=== PATIENT | male | born 1990 | race Two or more races ===

== ENCOUNTER 2017-12-08 12:30 | Emergency (ER) | payer OTHER ==
--- NOTE | 2017-12-08 13:17 | EDM.PDOC ---
ED HPI GENERAL MEDICAL PROBLEM - General Chief Complaint: Upper Extremity Injury/Pain Stated Complaint: LEFT HAND INJURY Time Seen by Provider: 12/08/17 13:07 Source of Information: Reports: Patient History Limitations: Reports: No Limitations - History of Present Illness INITIAL COMMENTS - FREE TEXT/NARRATIVE: Patient was cleaning fish with a sharp knife accidentally cutting himself to the left palm. Bleeding controlled with direct pressure. Tetanus status up-to- date. Minimal pain present. No sensory motor deficits distally. Left Hand Pain Score (Numeric/FACES): 2 - Related Data Allergies Allergy/AdvReac Type Severity Reaction Status Date / Time lactose Allergy Nausea and Verified 12/08/17 12:58 Vomiting Home Meds: Home Meds . [No Known Home Meds] 12/08/17 [History] Past Medical History Respiratory History: Reports: Pneumonia, Recurrent, Other (See Below) Other Respiratory History: double chest tubes at age 3 Social & Family History - Tobacco Use Smoking Status *Q: Never Smoker - Caffeine Use Caffeine Use: Reports: Energy Drinks, Soda, Tea - Recreational Drug Use Recreational Drug Type: Reports: Marijuana/Hashish Review of Systems - Review of Systems Review Of Systems: ROS reveals no pertinent complaints other than HPI. ED EXAM, GENERAL - Physical Exam Exam: See Below Exam Limited By: No Limitations General Appearance: Alert, WD/WN, No Apparent Distress Ears: Hearing Grossly Normal Nose: Normal Inspection Throat/Mouth: Normal Voice, No Airway Compromise Neck: Normal Inspection, Supple Respiratory/Chest: No Respiratory Distress, No Accessory Muscle Use Cardiovascular: Normal Peripheral Pulses, Regular Rate, Rhythm Peripheral Pulses: 4+: Radial (L) Extremities: Other (Small 0.75 cm laceration to the left palm. Subcutaneous tissue present. This will require one suture.) Neurological: Alert, Oriented, Normal Cognition, No Motor/Sensory Deficits Psychiatric: Normal Affect, Normal Mood Skin Exam: Warm, Dry, Normal Color ED TRAUMA EXTREMITY PROCEDURES - Laceration/Wound Repair Left Ventral Hand Lac/Wound Length In cm: 0.7 Appearance: Subcutaneous, Clean Distal NVT: Neuro & Vascular Intact, No Tendon Injury Anesthetic Type: Local Local Anesthesia - Lidocaine (Xylocaine): 1% Plain Local Anesthetic Volume: 2cc Skin Prep: Chlorhexidine (Hibiciens), Saline, Sterile Drape Exploration/Debridement/Repair: Wound Explored, In a Bloodless Field, Explored to Base, No Foreign Material Found Closed With: Sutures Suture Size: 4-0 # of Sutures: 1 Suture Type: Prolene, Interrupted, Simple Drain Placement: No Sterile Dressing Applied: Nurse Tetanus Status Addressed: Yes Complications: No Course - Vital Signs Last Recorded V/S: Last Vital Signs Temp 98.7 F 12/08/17 13:01 Pulse 67 12/08/17 13:01 Resp 20 12/08/17 13:01 BP 124/77 12/08/17 13:01 Pulse Ox 98 12/08/17 13:01 - Orders/Labs/Meds Meds: Medications Discontinued Medications Generic Name Dose Route Start Last Admin Trade Name Cricket PRN Reason Stop Dose Admin Lidocaine HCl 10 ml 12/08/17 13:12 12/08/17 13:33 Xylocaine 1% INJECT 12/08/17 13:13 10 ml ONETIME ONE Administration - Re-Assessments/Exams Free Text/Narrative Re-Assessment/Exam: Small 0.75 cm to the left palm requiring one simple interrupted suture. 1% lidocaine order. Laceration closed with no obligations. Discharge instructions as documented. Departure - Departure Time of Disposition: 14:03 Disposition: Home, Self-Care 01 Condition: Good Clinical Impression: Laceration Laceration of hand Qualifiers: Encounter type: initial encounter Foreign body presence: without foreign body Laterality: left Qualified Code(s): S61.412A - Laceration without foreign body of left hand, initial encounter - Discharge Information Instructions: Laceration Care, Adult Referrals: PCP,None [Primary Care Provider] - Forms: ED Department Discharge, ED Return to Work/School Form Additional Instructions: Cleanse site twice daily with soap and water, pat dry, reapply Triple Antibiotic ointment, and dressing. Do not soak wound. Keep area clean and dry. Follow-up with a provider at [facility] in [place] for suture removal in 10 days. Utilize Tylenol and ibuprofen in alternating fashion for pain. Wear a glove while working with food. Return to the ED if you develop any new or worsening symptoms.
[2017-12-08] MEDS: Lidocaine 1% 10 ML MDV INJECT ONE (13:33)
== END 2017-12-08 14:03 | disposition home or self-care (01) ==
LOC: JD.ED 12:30
DX: S61.412A Laceration without foreign body of left hand, initial encounter (principal); W26.0XXA Contact with knife, initial encounter; Y93.89 Activity, other specified; Y99.0 Civilian activity done for income or pay
CPT/HCPCS: 12001; 99283-25